=== PATIENT | female | born 1960 | race Two or more races ===

== ENCOUNTER 2017-08-18 07:00 | Day surgery (SDC) | payer OTHER ==
[~2017-08-18] VITALS: Ht 167.6 cm; Wt 92.1 kg
[~2017-08-18 07:00] MED LIST: GLIPIZIDE10 MG; INVOKAMET XR 11 EACH; PROTONIX40 MG
== END 2017-08-18 16:00 | disposition home or self-care (01) ==
LOC: CIR.AMB 07:00 → EDSTATUS 10:59 → ER 13:42 → SEC-K 13:42 → O/R 14:59 → SEC-K 14:59 → CIR.AMB 16:00 → SEC-K 17:07 → O/R 17:07
DX: D12.6 Benign neoplasm of colon, unspecified (principal); K57.32 Diverticulitis of large intestine without perforation or abscess without bleeding

== ENCOUNTER 2017-08-23 09:30 | Inpatient (IN) | payer OTHER ==
[~2017-08-23] VITALS: Ht 167.6 cm; Wt 92.1 kg
== END 2017-08-31 11:46 | disposition home or self-care (01) | DRG 331 ==
LOC: ADM 09:30 → EDSTATUS 09:30 → SURH 08-27 09:30 → O/R 08-27 10:13 → SURH 08-27 12:15 → SURG 08-27 21:47 → SURH 08-28 10:00
PROVIDERS: Colon & Rectal Surgery
PROC: 07TC4ZZ Resection of Pelvis Lymphatic, Percutaneous Endoscopic Approach (ICD-10-PCS; 2017-08-27)
PROC: 0DJD8ZZ Inspection of Lower Intestinal Tract, Via Natural or Artificial Opening Endoscopic (ICD-10-PCS; 2017-08-27)
PROC: 4A1BXSH Monitoring of Gastrointestinal Vascular Perfusion using Indocyanine Green Dye, External Approach (ICD-10-PCS; 2017-08-27)
PROC: 0DTN4ZZ Resection of Sigmoid Colon, Percutaneous Endoscopic Approach (ICD-10-PCS; principal; 2017-08-27 12:15)
DX: C18.7 Malignant neoplasm of sigmoid colon (principal); R59.0 Localized enlarged lymph nodes; I11.9 Hypertensive heart disease without heart failure; E11.9 Type 2 diabetes mellitus without complications

== ENCOUNTER → 2018-02-09 | Day surgery (SDC) | payer OTHER | END | disposition home or self-care (01) | LOC: ADM 02-07 13:30 → AMB-ENDOS 09:33 | DX: D12.3 Benign neoplasm of transverse colon (principal); D17.1 Benign lipomatous neoplasm of skin and subcutaneous tissue of trunk ==

== ENCOUNTER 2018-03-24 06:09 | Emergency (ER) | payer OTHER ==
[~2018-03-24] VITALS: Ht 167.6 cm; Wt 95.3 kg
[2018-03-24] MEDS ORDERED: IRBESARTAN150 MG (06:32)
[2018-03-24] MEDS ORDERED: CAPECITABINE500 MG (06:38)
== END 2018-03-24 13:25 | disposition home or self-care (01) ==
LOC: ER 06:09
DX: R10.31 Right lower quadrant pain (principal); K57.90 Diverticulosis of intestine, part unspecified, without perforation or abscess without bleeding; N39.0 Urinary tract infection, site not specified

== ENCOUNTER 2018-05-03 08:03 | Emergency (ER) | payer OTHER ==
[~2018-05-03] VITALS: Ht 167.6 cm; Wt 97.5 kg
[~2018-05-03 08:03] MED LIST changes: +CAPECITABINE500 MG; +IRBESARTAN150 MG
[2018-05-03] MEDS ORDERED: AMLODIPINE BESYL5 MG (08:13)
[2018-05-03] MEDS ORDERED: JANUVIA25 MG (08:14)
[2018-05-03] MEDS ORDERED: OMEPRAZOLE10 MG (08:14)
[2018-05-03] MEDS ORDERED: PNEU16DI2 (08:14)
[2018-05-03] MEDS ORDERED: ORPHENADRINE C100 MG PO (11:29)
[2018-05-03] MEDS ORDERED: TRAMADOL HCL50 MG PO (11:29)
== END 2018-05-03 12:36 | disposition home or self-care (01) ==
LOC: ER 08:03
DX: M54.5 Low back pain (principal); M25.562 Pain in left knee

== ENCOUNTER 2018-05-17 05:24 | Emergency (ER) | payer OTHER ==
[~2018-05-17] VITALS: Ht 167.6 cm; Wt 95.3 kg
[~2018-05-17 05:24] MED LIST changes: +AMLODIPINE BESYL5 MG; +JANUVIA25 MG; +OMEPRAZOLE10 MG; +ORPHENADRINE C100 MG PO; +PNEU16DI2; +TRAMADOL HCL50 MG PO
[2018-05-17] MEDS ORDERED: MEDROLPACK PO (07:48)
[2018-05-17] MEDS ORDERED: SKELAXIN800 MG PO (07:48)
[2018-05-17] MEDS ORDERED: PERCOCET 5-3251 EACH PO (07:48)
[2018-05-17] MEDS ORDERED: NEURONTIN300 MG PO (07:48)
== END 2018-05-17 08:40 | disposition home or self-care (01) ==
LOC: ER 05:24
DX: M54.32 Sciatica, left side (principal)